=== PATIENT | female | born 1980 | race Asian ===

== ENCOUNTER → 2024-07-11 12:11 | Outpatient (REF) | payer BC, SELFPAY | LOC: WDC 12:11 | PROVIDERS: ATTENDING PHYSICIAN Obstetrics & Gynecology | DX: Z12.31 Encounter for screening mammogram for malignant neoplasm of breast (principal) | CPT/HCPCS: 77063; 77067 ==

== ENCOUNTER → 2024-08-07 07:16 | Outpatient (REF) | payer BC, SELFPAY ==
[2024-08-07 08:11] LABS: % Basophils 0.7 % (0-2); % Eosinophils 2.8 % (0-6); % Lymphocytes 25.8 % (20.5-51.1); % Monocytes 7.8 % (1.7-9.3); % Neutrophils 62.9 % (42.2-75.2); Absolute Eosinophils 0.1 10^3/uL (0-0.7); Absolute Lymphocytes 1.1 10^3/uL (1.2-3.4); Absolute Monocytes 0.3 10^3/uL (0.1-0.6); Absolute Neutrophils 2.7 10^3/uL (1.4-6.5); Hematocrit 33.1 % (37.0-47.0); Hemoglobin 11.2 g/dL (12.0-16.0); Mean Corp Hgb Conc. 33.8 g/dL (33.0-37.0); Mean Corpuscular Volume 85.8 fL (81.0-99.0); Mean Platelet Volume 9.3 fL (7.4-10.4); Nucleated Red Blood Cells % 0 %; Platelet Count 362 10^3/uL (130-400); Red Blood Cell Count 3.86 10^6/uL (4.20-5.40); White Blood Cell Count 4.3 10^3/uL (4.8-10.8)
[2024-08-07 08:48] LABS: ALT (SGPT) 21 U/L (0-35); AST (SGOT) 24 U/L (14-36); Albumin 4.3 g/dl (3.5-5.0); Alkaline Phosphatase 59 U/L (38-126); Blood Urea Nitrogen 16 mg/dl (7-17); Calcium 9.3 mg/dl (8.4-10.2); Carbon Dioxide 27 mmol/L (22-30); Chloride 103 mmol/L (98-107); Glucose 93 mg/dl (70-99); HDL Cholesterol 54 mg/dl; LDL Cholesterol, Calculated 116 mg/dl; Potassium 4.2 mmol/L (3.5-5.1); Sodium 141 mmol/L (135-145); Total Bilirubin 0.7 mg/dl (0.2-1.3); Total Cholesterol 205 mg/dl (50-199); Total Protein 6.9 g/dl (6.3-8.2); Triglyceride 175 mg/dl (10-149); Very Low Density Lipoprotein 35 mg/dl (0-30); eGFR > 60.00
[2024-08-07 09:13] LABS: TSH Reflex To Free T4 3.09 uIU/ml (0.47-4.68)
== END ==
LOC: REG 07:16
PROVIDERS: ATTENDING PHYSICIAN Family Medicine
DX: Z00.00 Encounter for general adult medical examination without abnormal findings (principal)
CPT/HCPCS: 36415; 80053; 80061; 84443; 85025

== ENCOUNTER → 2025-04-03 11:02 | Outpatient (REF) | payer BC, SELFPAY | LOC: RAD 11:02 | PROVIDERS: ATTENDING PHYSICIAN Obstetrics & Gynecology; FAMILY PHYSICIAN Family Medicine | DX: Z30.431 Encounter for routine checking of intrauterine contraceptive device (principal) | CPT/HCPCS: 76830; 76856 ==

== ENCOUNTER → 2025-06-18 09:27 | Outpatient (REF) | payer BC, SELFPAY | LOC: WDC 09:27 | PROVIDERS: ATTENDING PHYSICIAN Obstetrics & Gynecology; FAMILY PHYSICIAN Family Medicine | DX: N63.41 Unspecified lump in right breast, subareolar (principal) | CPT/HCPCS: 76642; 77062; 77066 ==

== ENCOUNTER → 2025-06-19 07:54 | Outpatient (REF) | payer BC, SELFPAY ==
--- NOTE | 2025-06-19 12:20 | OID.BR.INTR ---
[facility] Breast Navigator - Initial
- -
Date of Contact: 06/19/25
Met with patient. Patient given written information on navigator services available at [facility]. Will follow up as needed per protocol.
== END ==
LOC: WDC 07:54
PROVIDERS: ATTENDING PHYSICIAN Obstetrics & Gynecology; FAMILY PHYSICIAN Family Medicine
DX: N63.41 Unspecified lump in right breast, subareolar (principal)
CPT/HCPCS: 19083; 19084; 88305; 88341; 88342; 88360; A4648

== ENCOUNTER → 2025-07-05 16:39 | Outpatient (REF) | payer BC, SELFPAY | LOC: MRI 3T 16:39 | PROVIDERS: ATTENDING PHYSICIAN Surgery; FAMILY PHYSICIAN Family Medicine | DX: C50.411 Malignant neoplasm of upper-outer quadrant of right female breast (principal); Z17.0 Estrogen receptor positive status [ER+] | CPT/HCPCS: 77049; A9585 ==

== ENCOUNTER → 2025-07-18 14:33 | Outpatient (REF) | payer BC, SELFPAY | LOC: WDC 14:33 | PROVIDERS: ATTENDING PHYSICIAN Surgery | DX: R92.8 Other abnormal and inconclusive findings on diagnostic imaging of breast (principal); C50.411 Malignant neoplasm of upper-outer quadrant of right female breast | CPT/HCPCS: 76642 ==

== ENCOUNTER → 2025-10-04 09:54 | Outpatient (REF) | payer BC, SELFPAY ==
[2025-10-04 11:14] LABS: Hematocrit 29.6 % (37.0-47.0); Hemoglobin 9.5 g/dL (12.0-16.0); Mean Corp Hgb Conc. 32.1 g/dL (33.0-37.0); Mean Corpuscular Volume 84.1 fL (81.0-99.0); Nucleated Red Blood Cells % 0 %; Platelet Count 427 10^3/uL (130-400); Red Cell Dist. Width 13.2 % (11.5-14.5)
[2025-10-04 11:56] LABS: HDL Cholesterol 60 mg/dl; LDL Cholesterol, Calculated 137 mg/dl; Very Low Density Lipoprotein 25 mg/dl (0-30)
== END ==
LOC: REG 09:54
PROVIDERS: ATTENDING PHYSICIAN Family Medicine
DX: Z00.00 Encounter for general adult medical examination without abnormal findings (principal); I10 Essential (primary) hypertension
CPT/HCPCS: 36415; 80061; 84443; 85025

== ENCOUNTER 2025-11-13 10:43 | Emergency (ER) | payer BC, SELFPAY ==
[2025-11-13 11:00] VITALS: BP 144/81
--- NOTE | 2025-11-13 11:23 | ED.GENMED ---
History of Present Illness
General
Chief Complaint: Medication Reaction
Time Seen by Provider: 11/13/25 11:13
History of Present Illness
History of Present Illness:
see MDM
Past History
Past History
ED Past Medical History: Other
ED Past Surgical History: None
Social History
Tobacco: Non-smoker
Alcohol: None
Drug: None
Personal:
Living: with family
Family History
Family History: Other
Phy Exam
Physical Exam
Physical Exam:
GENERAL: Alert , in no apparent distress
EYE: pupils equal and reactive
NECK: Supple
ENT: very minimal uvular edema, normal phonation, tolerating secretions
CARDIAC: Regular rate and rhythm, no edema
LUNGS: Clear breath sounds bilaterally, no acute respiratory distress, no wheezes/rales/rhonchi, occ cough
ABDOMEN: Soft, without focal tenderness, no r/g, no cvat, normal bowel sounds
NEUROLOGICAL: Alert and oriented, no focal neuro deficits
SKIN: Warm and dry, faint urticaria on her arms
MUSCULOSKELETAL: No edema, well perfused.
PSYCH: Normal and appropriate interaction.
Course
Orders/Labs/Results
Orders:
Orders
11/13/25 11:23
Diphenhydramine [Benadryl] 25 mg IV NOW STA
Famotidine [Pepcid] 20 mg IV NOW STA
11/13/25 11:28
Dexamethasone Sod Phosphate [Decadron] 10 mg IV NOW STA
11/13/25 11:41
0.9% Sodium Chloride 1000 ml [Nss] 1,000 ml IV BOLUS
EPINEPHrine PF [Adrenalin] 0.3 mg IM NOW STA
Vital Signs
Initial and Last Documented VS:
Initial Vital Signs
Temp Pulse Resp BP Pulse Ox
36.4 C 63 15 144/81 99
11/13/25 11:00 11/13/25 11:00 11/13/25 11:00 11/13/25 11:00 11/13/25 11:00
Last Documented Vital Signs
Temp Pulse Resp BP Pulse Ox
36.4 C 66 14 117/72 95
11/13/25 11:00 11/13/25 14:06 11/13/25 14:06 11/13/25 14:06 11/13/25 13:45
MDM/Problems Addressed
Differential Diagnosis Includes:
see MDM
MDM/Problems Addressed:
Note:
CHIEF COMPLAINT(S)
Allergic reaction with rash and facial tightness following chemotherapy infusion.
HISTORY OF PRESENT ILLNESS
The patient is a 45-year-old female with a recent history of breast cancer undergoing chemotherapy. She presents with concerns of an allergic reaction following her second chemotherapy infusion which occurred on Tuesday. She reports a history of
allergic reactions with her chemotherapy infusions. During her first infusion three weeks ago, she experienced bloating and significant joint pain, managed with intravenous diphenhydramine and famotidine. For her second infusion, oral
diphenhydramine was administered, which was ineffective, leading to continued joint pain until intravenous administration was provided again. Two days post-infusion, she developed itching and a rash starting around 8 AM, which has slightly improved
but remains stable. She took oral diphenhydramine (50 mg) at around 10 AM for itching. Concurrent symptoms include a sensation of facial tightness which began later in the morning and has persisted. She denies any history of anaphylaxis or previous
requirement for epinephrine administration. Her chemotherapy regimen involves pre-treatment with dexamethasone as a standard protocol. She reports communicating with her oncologists office, which suggested managing her symptoms with standard allergy
medications.
PAST MEDICAL AND SURGICAL HISTORY
Recently underwent a bilateral mastectomy for breast cancer. Currently receiving chemotherapy. No metastasis or lymph node involvement. Estrogen receptor-positive breast cancer.
SOCIAL DETERMINANTS AFFECTING HEALTH
The patient is undergoing chemotherapy treatment, which involves continuous interactions with her healthcare team and may influence her well-being and stress levels.
REVIEW OF SYSTEMS
- Dermatological: Rash and itching following chemotherapy infusion.
- Musculoskeletal: Joint pain following chemotherapy infusion.
- Respiratory: Facial tightness, but no reported difficulty in breathing.
- General: Sensation of being flushed after arrival at the emergency department.
PHYSICAL EXAM
- Head, Eyes, Ears, Nose, and Throat: Uvula is minimally swollen. The patient can talk and swallow without difficulty.
- Skin: Rash present but stable.
Nursing notes reviewed and vital signs reviewed.
PROBLEM LIST
- Acute allergic reaction to chemotherapy agents.
PLAN
- Consider administering additional diphenhydramine, and monitor the patients response.
- Evaluate the need for steroids intravenously or epinephrine based on the progression of symptoms.
- Monitor the patient closely due to potential cardiovascular effects of epinephrine administration if needed.
DIFFERENTIAL DIAGNOSIS
The Differential Diagnosis includes, in no particular order and is not limited to:
1. Drug reaction to chemotherapy
2. Type I hypersensitivity reaction
3. Angioedema
4. Contact dermatitis
5. Urticaria
6. Vasculitis
7. Systemic lupus erythematosus exacerbation
8. Serum sickness
9. Mast cell disorder
10. Hypersensitivity syndrome disorder
CARE-UPDATE
11/13/25 - 11:48
The patient experienced an itchy rash on arms and palms and a sensation of throat swelling after her second chemotherapy infusion. Despite taking 50 mg of oral Benadryl, the symptoms persisted. Upon examination, vital signs were stable with faint
urticaria on arms, facial flushing, and mild uvular edema. Lungs were clear, and she tolerated secretions well. After administration of IV Benadryl, Decadron, and Pepcid, nausea resolved, though she vomited once. Subsequently, I.M. Epinephrine was
administered due to concern for anaphylaxis. The patient has no cardiac history. Further observation and monitoring are needed to assess reaction management and prevent future occurrences.
CARE-UPDATE
11/13/25 - 13:23
The patients throat symptoms have improved, though minimal discomfort persists. A plan to prescribe prednisone is established: the patient is to take 40 mg (two tablets) tomorrow, then 20 mg once daily for the next two days. A Medrol dose pack was
considered but not preferred. Benadryl is recommended for use as needed if any rash returns. Should any worsening airway symptoms or wheezing occur, the patient is advised to use the prescribed inhaler and contact medical assistance. Coordination
regarding the next steps will be managed by Drs. Wallace and Mary Beth, considering resolution of symptoms.
*Pulse Oximetry
SaO2: 99
Oxygen Mode of Delivery: Room air
Patient hypoxic: no (99)
*Critical Care Note
Total Time (30-74mins, 75-104mins- exclusive of procedures): Not Applicable
ED Attending Note
-
Portions of this chart may have been created with voice recognition software.� Occasional wrong word or��sound alike� substitutions may have occurred due to the inherent limitations of voice recognition software.
Discharge Plan
Departure
Patient Disposition: Home (Routine Discharge)
Date of Disposition: 11/13/25
Time of Disposition: 14:42
Patient with high blood pressure during this ER visit?: No
Discharge Problem:
Anaphylaxis
Instructions: Anaphylaxis (DC)
Prescriptions:
New
epinephrine [EpiPen 2-Daniel] 0.3 mg/0.3 mL auto-injector
0.3 mg IM Q5-15M PRN (Reason: anaphylaxis) Qty: 2 0RF
prednisone 20 mg tablet
See Rx Instructions .ROUTE .COMPLEX Qty: 4 0RF
Rx Instructions:
40 mg orally day 1, then 20 mg orally days 2 and 3
No Action
vit no.[id number] [ One Daily] 1 EACH tablet
1 ea PO DAILY
Referrals:
Argelia Torres MD [Family Provider, Family Practice]
Activity Restrictions/Additional Instructions:
Seems like you are having allergic reaction to your chemotherapy. Starting tomorrow use prednisone once a day, do 40 mg tomorrow and then 20 mg on Tuesday and 20 mg on Saturday.
You can continue to use Benadryl every 8 hours as needed for itchy or rash. You can also take Pepcid twice a day. I sent a prescription for an EpiPen. Use this if you feel like the swelling in your throat is worse suddenly or you are getting
wheezing or shortness of breath. Call your oncologist for close follow-up recommendations, otherwise return to the ER for any worsening symptoms
Interventions
Interventions:
*General Assessment Last Done: 11/13/25 11:00
*Neglect/Abuse Screening Last Done: 11/13/25 11:00
*ED COVID-19 Vaccine History Last Done: 11/13/25 11:00
*ED Influenza Vaccine History Last Done: 11/13/25 11:00
[facility] Fall Risk Assessment Tool Last Done: 11/13/25 11:48
*Risk Screen - Suicide (C-SSRS) Last Done: 11/13/25 11:53
*Nursing Disposition Last Done: 11/13/25 14:47
ED-Skin Assessment Last Done: 11/13/25 11:53
ED- Pulmonary Assessment Last Done: 11/13/25 11:53
ED-EENT Assessment Last Done: 11/13/25 11:53
Discharge Date and Time
Discharge Date/Time: 11/13/25 14:48
Print Language: [place]
[2025-11-13] MEDS: DECADRON 10 MG IV (11:30)
[2025-11-13] MEDS: BENADRYL 25 MG IV (11:31)
[2025-11-13] MEDS: PEPCID 20 MG IV (11:31)
[2025-11-13 11:40] VITALS: BP 129/86
[2025-11-13] MEDS: NSS 1000 IV (11:43)
[2025-11-13] MEDS: ADRENALIN 0.3 MG IM (11:44)
[2025-11-13 11:52] VITALS: BMI 29.6
[2025-11-13 12:00] VITALS: BP 116/76
[2025-11-13 13:00] VITALS: BP 107/70
[2025-11-13 14:06] VITALS: BP 117/72
== END 2025-11-13 14:48 | disposition home or self-care (01) ==
LOC: EMR 10:43
PROVIDERS: EMERGENCY PHYSICIAN Emergency Medicine; FAMILY PHYSICIAN Family Medicine
DX: T78.2XXA Anaphylactic shock, unspecified, initial encounter (principal); T50.905A Adverse effect of unspecified drugs, medicaments and biological substances, initial encounter; Y92.9 Unspecified place or not applicable; Z85.3 Personal history of malignant neoplasm of breast; Z90.13 Acquired absence of bilateral breasts and nipples
CPT/HCPCS: 99282; 96374; 96375; 96372; 96361